=== PATIENT | female | born 1965 | race Caucasian/White ===

== ENCOUNTER 2020-09-22 03:01 | Emergency (ER) | payer OTHER ==
[2020-09-22 03:05] VITALS: TEMP 98.4
[2020-09-22] MEDS ORDERED: SODIUM CHLORIDE 0.9% 1,000 ML IV STA (03:21)
--- NOTE | 2020-09-22 03:23 | ED ---
Arrhythmia/Palpitations HPI - General Chief Complaint: Arrhythmia/Palpitations Stated Complaint: High heart rate Time Seen by Provider: 09/22/20 03:04 Source: patient, family, RN notes reviewed, old records reviewed Mode of arrival: ambulatory Limitations: no limitations - History of Present Illness Initial Comments: This is a 55-year-old female who woke up from sleeping not feeling herself. States she didn't feel quite right something is wrong she was having nausea and chest pain with a deep breath. Patient then checked her upper water knows her heart rate to be elevated. She states it's about twice its normal rate she says her heart rate normally runs 50s to 60s and currently is 120s. No recent illnesses travel history or sick contacts. Patient takes no medications denies any recent drugs or alcohol currently she still feels her heart racing she still feels nauseous no sweating no current shortness of breath. MD Complaint: rapid heart beat, "heart racing", palpitations -: minutes(s), hour(s) Context: occurred during rest, awoke with symptoms Associated Symptoms: chest pain, shortness of breath - Related Data Allergies Allergy/AdvReac Type Severity Reaction Status Date / Time No Known Allergies Allergy Verified 09/22/20 03:05 Review of Systems ROS Statement: Those systems with pertinent positive or pertinent negative responses have been documented in the HPI. ROS Other: All systems not noted in ROS Statement are negative. Past Medical History Past Medical History: No Reported History History of Any Multi-Drug Resistant Organisms: None Reported Past Surgical History: No Surgical Hx Reported Past Psychological History: No Psychological Hx Reported Smoking Status: Never smoker Past Alcohol Use History: Occasional Past Drug Use History: None Reported General Exam Limitations: no limitations General appearance: anxious Head exam: Present: atraumatic, normocephalic, normal inspection Eye exam: Present: normal appearance, PERRL, EOMI. Absent: scleral icterus, conjunctival injection, periorbital swelling ENT exam: Present: normal exam, mucous membranes moist Neck exam: Present: normal inspection. Absent: tenderness, meningismus, lymphadenopathy Respiratory exam: Present: normal lung sounds bilaterally. Absent: respiratory distress, wheezes, rales, rhonchi, stridor Cardiovascular Exam: Present: normal rhythm, tachycardia, normal heart sounds. Absent: systolic murmur, diastolic murmur, rubs, gallop, clicks GI/Abdominal exam: Present: soft, normal bowel sounds. Absent: distended, tenderness, guarding, rebound, rigid Extremities exam: Present: normal inspection, full ROM, normal capillary refill. Absent: tenderness, pedal edema, joint swelling, calf tenderness Back exam: Present: normal inspection Neurological exam: Present: alert, oriented X3, CN II-XII intact Psychiatric exam: Present: normal affect, normal mood Skin exam: Present: warm, dry, intact, normal color. Absent: rash Course Vital Signs 09/22/20 09/22/20 09/22/20 03:01 03:47 04:53 Temperature 98.4 F Pulse Rate 113 H 87 Pulse Rate [ 118 H Hand Crocheter ] Respiratory 22 Rate Blood Pressure 161/78 O2 Sat by Pulse 100 Oximetry 09/22/20 05:00 Temperature Pulse Rate 98 Pulse Rate [ Hand Crocheter ] Respiratory 18 Rate Blood Pressure 114/77 O2 Sat by Pulse 98 Oximetry - Reevaluation(s) Reevaluation #1: 09/22/20 05:15 Records reviewed Reevaluation #2: 09/22/20 05:15 Patient symptoms are improved here in the ER blood pressure is improved to normal, heart rate still elevated but improved from greater than 100 Reevaluation #3: 09/22/20 05:15 Patient feeling better Reevaluation #4: 09/22/20 05:15 Patient informed of results questions have been answered EKG Findings - EKG Comments: EKG Findings:: EKG is sinus tachycardia 110 MS 160 QRS 98 QTc 446 Medical Decision Making - Medical Decision Making Detected. He does have history of disease coming in for palpitations elevated that woke her from sleep. Patient symptoms improved throughout ER stay does have a CT here in the ER which is negative for acute disease and normal labwork. Patient can be discharged - Lab Data Result diagrams: 09/22/20 03:46 09/22/20 03:46 Lab Results 09/22/20 09/22/20 09/22/20 Range/Units 03:46 03:46 03:46 WBC 6.3 (3.8-10.6) k/uL RBC 4.39 (3.80-5.40) m/uL Hgb 13.5 (11.4-16.0) gm/dL Hct 40.5 (34.0-46.0) % MCV 92.3 (80.0-100.0) fL MCH 30.7 (25.0-35.0) pg MCHC 33.2 (31.0-37.0) g/dL RDW 12.8 (11.5-15.5) % Plt Count 320 (150-450) k/uL MPV 6.7 Neutrophils % 69 % Lymphocytes % 22 % Monocytes % 6 % Eosinophils % 1 % Basophils % 1 % Neutrophils # 4.4 (1.3-7.7) k/uL Lymphocytes # 1.4 (1.0-4.8) k/uL Monocytes # 0.4 (0-1.0) k/uL Eosinophils # 0.1 (0-0.7) k/uL Basophils # 0.0 (0-0.2) k/uL PT 9.6 (9.0-12.0) sec INR 0.9 (<1.2) APTT 20.8 L (22.0-30.0) sec D-Dimer 0.28 (<0.60) mg/L FEU Sodium 138 (137-145) mmol/L Potassium 4.6 (3.5-5.1) mmol/L Chloride 104 (98-107) mmol/L Carbon Dioxide 27 (22-30) mmol/L Anion Gap 7 mmol/L BUN 20 H (7-17) mg/dL Creatinine 0.98 (0.52-1.04) mg/dL Est GFR (CKD-EPI)AfAm 75 (>60 ml/min/1.73 sqM) Est GFR (CKD-EPI)NonAf 65 (>60 ml/min/1.73 sqM) Glucose 107 H (74-99) mg/dL Plasma Lactic Acid Mariano (0.7-2.0) mmol/L Calcium 9.9 (8.4-10.2) mg/dL Phosphorus 5.0 H (2.5-4.5) mg/dL Magnesium 2.0 (1.6-2.3) mg/dL Total Bilirubin 0.4 (0.2-1.3) mg/dL AST 29 (14-36) U/L ALT 17 (4-34) U/L Alkaline Phosphatase 90 (38-126) U/L Creatine Kinase 64 (30-135) U/L Troponin I (0.000-0.034) ng/mL Total Protein 7.4 (6.3-8.2) g/dL Albumin 4.6 (3.5-5.0) g/dL TSH 3.070 (0.465-4.680) mIU/L 09/22/20 09/22/20 Range/Units 03:46 03:46 WBC (3.8-10.6) k/uL RBC (3.80-5.40) m/uL Hgb (11.4-16.0) gm/dL Hct (34.0-46.0) % MCV (80.0-100.0) fL MCH (25.0-35.0) pg MCHC (31.0-37.0) g/dL RDW (11.5-15.5) % Plt Count (150-450) k/uL MPV Neutrophils % % Lymphocytes % % Monocytes % % Eosinophils % % Basophils % % Neutrophils # (1.3-7.7) k/uL Lymphocytes # (1.0-4.8) k/uL Monocytes # (0-1.0) k/uL Eosinophils # (0-0.7) k/uL Basophils # (0-0.2) k/uL PT (9.0-12.0) sec INR (<1.2) APTT (22.0-30.0) sec D-Dimer (<0.60) mg/L FEU Sodium (137-145) mmol/L Potassium (3.5-5.1) mmol/L Chloride (98-107) mmol/L Carbon Dioxide (22-30) mmol/L Anion Gap mmol/L BUN (7-17) mg/dL Creatinine (0.52-1.04) mg/dL Est GFR (CKD-EPI)AfAm (>60 ml/min/1.73 sqM) Est GFR (CKD-EPI)NonAf (>60 ml/min/1.73 sqM) Glucose (74-99) mg/dL Plasma Lactic Acid Mariano 0.7 (0.7-2.0) mmol/L Calcium (8.4-10.2) mg/dL Phosphorus (2.5-4.5) mg/dL Magnesium (1.6-2.3) mg/dL Total Bilirubin (0.2-1.3) mg/dL AST (14-36) U/L ALT (4-34) U/L Alkaline Phosphatase (38-126) U/L Creatine Kinase (30-135) U/L Troponin I <0.012 (0.000-0.034) ng/mL Total Protein (6.3-8.2) g/dL Albumin (3.5-5.0) g/dL TSH (0.465-4.680) mIU/L - Radiology Data Radiology results: report reviewed (CT chest is negative for PE), image reviewed Disposition Clinical Impression: Tachycardia, Palpitations Disposition: HOME SELF-CARE Condition: Good Instructions (If sedation given, give patient instructions): Heart Palpitations (ED) Is patient prescribed a controlled substance at d/c from ED?: No Referrals: Chago Brothers MD [STAFF PHYSICIAN] - 1-2 days
[2020-09-22 03:53] LABS: Basophils % (A) 1 %; Eosinophils # (A) 0.1 k/uL (0-0.7); Eosinophils % (A) 1 %; HCT 40.5 % (34.0-46.0); HGB 13.5 gm/dL (11.4-16.0); Lymphocytes # (A) 1.4 k/uL (1.0-4.8); Lymphocytes % (A) 22 %; MCH 30.7 pg (25.0-35.0); MCHC 33.2 g/dL (31.0-37.0); MCV 92.3 fL (80.0-100.0); Mean Platelet Volume 6.7; Monocytes # (A) 0.4 k/uL (0-1.0); Monocytes % (A) 6 %; Neutrophils # (A) 4.4 k/uL (1.3-7.7); Neutrophils % (A) 69 %; Platelet Count 320 k/uL (150-450); RBC 4.39 m/uL (3.80-5.40); RDW 12.8 % (11.5-15.5); WBC 6.3 k/uL (3.8-10.6)
[2020-09-22 04:02] LABS: Albumin 4.6 g/dL (3.5-5.0); Calcium 9.9 mg/dL (8.4-10.2); Potassium 4.6 mmol/L (3.5-5.1); Total Bilirubin 0.4 mg/dL (0.2-1.3); Total Protein 7.4 g/dL (6.3-8.2)
[2020-09-22 04:15] LABS: D-Dimer 0.28 mg/L FEU (<0.60); INR 0.9 (<1.2); Prothrombin Time 9.6 sec (9.0-12.0)
[2020-09-22 04:25] LABS: Partial Thromboplastin Time 20.8 sec (22.0-30.0)
--- NOTE | 2020-09-22 04:25 | CT ---
EXAM: CT Angiography Chest With Intravenous Contrast CLINICAL HISTORY: PE TECHNIQUE: Axial computed tomographic angiography images of the chest with intravenous contrast. CTDI is 10.77 mGy and DLP is 265.8 mGy-cm. This CT exam was performed using one or more of the following dose reduction techniques: automated exposure control, adjustment of the mA and/or kV according to patient size, and/or use of iterative reconstruction technique. MIP reconstructed images were created and reviewed. COMPARISON: No relevant prior studies available. FINDINGS: Pulmonary arteries: Unremarkable. No pulmonary embolism. Aorta: No acute findings. No thoracic aortic aneurysm. Lungs: Unremarkable. No mass. No consolidation. Pleural space: Unremarkable. No significant effusion. No pneumothorax. Heart: Unremarkable. No cardiomegaly. No significant pericardial effusion. No evidence of RV dysfunction. Bones/joints: No acute fracture. No dislocation. Soft tissues: Unremarkable. Lymph nodes: Unremarkable. No enlarged lymph nodes. IMPRESSION: No evidence of pulmonary emboli or acute cardiopulmonary process.
[2020-09-22 05:01] VITALS: BP 114/77; PULSE 98; RESP 18
== END 2020-09-22 05:28 | disposition home or self-care (01) ==
LOC: EC 03:01
DX: R00.0 Tachycardia, unspecified (principal); R00.2 Palpitations; R07.1 Chest pain on breathing; R11.0 Nausea
CPT/HCPCS: 36415; 93005; 85379; 80053; 82550; 83605; 83735; 84100; 84443; 84484; 85025; 85610; 85730; 71275; 99285; 96360; 96361; Q9967

== ENCOUNTER → 2021-06-25 | Outpatient (CLI) | payer OTHER ==
[2021-06-25 12:03] LABS: HCT 39.8 % (34.0-46.0); HGB 13.4 gm/dL (11.4-16.0); MCHC 33.7 g/dL (31.0-37.0); MCV 97.7 fL (80.0-100.0); Mean Platelet Volume 6.8; Platelet Count 279 k/uL (150-450); RBC 4.07 m/uL (3.80-5.40); RDW 12.5 % (11.5-15.5); WBC 3.4 k/uL (3.8-10.6)
--- NOTE | 2021-06-25 12:44 | US ---
EXAMINATION TYPE: US thyroid st tissue head/neck DATE OF EXAM: 06/25/2021 COMPARISON: NONE CLINICAL HISTORY: E01.2 thyroid nodule. patient feels lump that goes up and down in side on the left GLAND SIZE: Right Lobe: 3.9 x 1.1 x 1.1 cm Overall Parenchyma: homogenous Left Lobe: 5.7 x 1.2 x 2.1 cm Overall Parenchyma: heterogeneous Isthmus Thickness: 0.4 cm NODULES RIGHT: # of nodules measured on right: 0 LEFT: # of nodules measured on left: 1 1. 3.0 X 1.1 x 2.7 cm, mid , cystic or almost completely cystic, hypoechoic nodule, which is wider than tall, with smooth margins, without echogenic foci. Prior size: [employer] ISTHMUS: # of nodules measured in the isthmus: 0 Bilateral neck scanned, no evidence of lymphadenopathy. IMPRESSION: Thyromegaly correlate for thyroiditis 2017 ACR TI-RADS LEVEL: TR-RADS 3 - Mildly Suspicious: Follow if > 1.5 cm, FNA if > 2.5 cm *Highest TI-RADS level nodule reported
== END | disposition home or self-care (01) ==
LOC: RADUSWWP 10:57
PROVIDERS: ATTEND Internal Medicine Endocrinology, Diabetes & Metabolism
DX: E01.2 Iodine-deficiency related (endemic) goiter, unspecified (principal)
CPT/HCPCS: 76536; 84439; 84443; 84480; 85027